=== PATIENT | female | born 1975 | race Caucasian/White ===

== ENCOUNTER 2017-11-06 16:03 | Emergency (ER) | payer OTHER, MEDICAID ==
[2017-11-06 16:46] LABS: URINE PH (Dip) POC 5.5 (5.0-8.5)
[2017-11-06 16:46] LABS: URINE BLOOD (Dip) POC 1+ (NEGATIVE); URINE GLUCOSE (Dip) POC Negative (NEGATIVE); URINE KETONES (Dip) POC Negative (NEGATIVE); URINE LEUKOCYTE EST (Dip) POC Negative (NEGATIVE); URINE NITRITE (Dip) POC Negative (NEGATIVE); URINE TOTAL PROTEIN POC Negative (NEGATIVE)
[2017-11-06] MEDS: ACET/BUTAL/CAFF TAB PO (17:02)
== END 2017-11-06 17:15 | disposition home or self-care (01) ==
LOC: FTE 16:03
DX: R51 Headache (principal)
CPT/HCPCS: 81003; 81025; 99282